=== PATIENT | female | born 1945 | race Caucasian/White ===

== ENCOUNTER 2020-12-25 23:25 | Emergency (ER) | payer MEDICARE, OTHER, SELFPAY ==
[2020-12-25 23:29] VITALS: BP 151/65; PULSE 111; RESP 14; TEMP 37.2; O2SAT 97
--- NOTE | 2020-12-25 23:57 | ED.SKABFB ---
HPI - Skin/Abscess/Foreign Bdy General Chief complaint: Skin/Abscess/Foreign Body Stated complaint: i think i have cellulitis in my right arm again Time Seen by Provider: 12/25/20 23:37 History of Present Illness HPI narrative: Patient is a 75-year-old female who presents ER with concerns for cellulitis to her right upper extremity. She typically wears a compression sleeve on the right arm. She took it off this evening because it is getting itchy. And she has developed edema and redness from the distal upper arm down to the wrist. Is warm to touch. She had a fever at home. She has had cellulitis similar to this in the past. No chest pain or shortness of breath. She has not tried any pain medication. Related Data Home Medications Medication Instructions Recorded Confirmed atorvastatin 20 mg tablet 20 mg PO DAILY 10/11/19 12/08/20 lisinopril 5 mg tablet 5 mg PO DAILY 10/11/19 12/08/20 aspirin 81 mg tablet,delayed 81 mg PO BID tablet 10/15/19 12/08/20 release sitagliptin 50 mg-metformin 1,000 1 tablet PO BID tablet 10/15/19 12/08/20 mg tablet Allergies Allergy/AdvReac Type Severity Reaction Status Date / Time No Known Allergies Allergy Unknown Uncoded 12/08/20 14:27 Review of Systems Review of Systems: All systems reviewed & are unremarkable except as noted in HPI and below Constitutional: Constitutional: Denies chills, Reports fever(s) and Denies weakness Musculoskeletal: Musculoskeletal: Denies arthralgias, Denies joint swelling and Denies muscle cramps Integumentary/Breasts: Skin/Breast: Reports pruritus, Reports erythema and Reports rash PMFSH Past Medical History Medical History (Updated 12/26/20 @ 00:00 by Venancio Goodwin MD) Body mass index (bmi) 38.0-38.9, adult (04/06/19) Diabetes 1.5, managed as type 2 PEÑALOZA (dyspnea on exertion) Dyslipidemia Essential hypertension History of breast cancer Lung nodule Lung nodule seen on imaging study Preop cardiovascular exam Surgical History Surgical History H/O: hysterectomy Family History Family History Father Family history of primary malignant neoplasm of liver Patient's father is , Onset Age: 68 Family history of malignant neoplasm of brain Mother Cerebrovascular accident, Onset Age: 94 Hypertension Sibling Breast cancer Sachin disease Social History Social History Smoking status: Never smoker Alcohol intake: never Substance use: never Spiritual care concerns: No Agree to blood products: Yes Exam Narrative: Exam Narrative: GENERAL: Well-appearing, well-nourished, and in no acute distress. HEAD: Normocephalic, atraumatic. CHEST: Clear to auscultation. No respiratory distress. HEART: Regular rate and rhythm. Normal peripheral pulses. EXTREMITIES: Normal range of motion. Mild edema right upper extremity from the elbow to the wrist. SKIN: Warm, dry, developing cellulitis right upper extremity that is warm to touch and slightly pink. No pustules or vesicles. NEURO: Alert and oriented x3. PSYCH: Normal mood and affect. Course Course Emergency Course: Will discharge with antibiotics. 1st dose here. Recommend follow-up with PCP. Discussed return precautions and patient verbalized understanding. Vital Signs Vital signs: Vital Signs Temperature 98.9 F 12/25/20 23:29 Pulse Rate 111 H 12/25/20 23:29 Respiratory Rate 14 12/25/20 23:29 Blood Pressure 151/65 H 12/25/20 23:29 Pulse Oximetry 97 12/25/20 23:29 Temperature 98.9 F 12/25/20 23:29 Pulse Rate 111 H 12/25/20 23:29 Respiratory Rate 14 12/25/20 23:29 Blood Pressure 151/65 H 12/25/20 23:29 Pulse Oximetry 97 12/25/20 23:29 Discharge Plan Discharge Clinical Impression: Cellulitis Patient Disposition: Home, Self-Care Condition: Stable
[2020-12-26] MEDS: CEPHALEXIN 500 MG CAPSULE PO (00:09)
== END 2020-12-26 00:13 | disposition home or self-care (01) ==
PROVIDERS: Emergency Provider Emergency Medicine
DX: L03.113 Cellulitis of right upper limb (principal); E78.5 Hyperlipidemia, unspecified; I10 Essential (primary) hypertension; E13.9 Other specified diabetes mellitus without complications; Z85.3 Personal history of malignant neoplasm of breast; Z79.82 Long term (current) use of aspirin
CPT/HCPCS: 99283; A9270

== ENCOUNTER 2021-02-07 09:33 | Outpatient (CLI) | payer MEDICARE, OTHER, SELFPAY ==
--- NOTE | ~2021-02-07 | CT_ITS ---
EXAMINATION: CT diagnostic chest wo con EXAM DATE: 02/07/2021 09:53 INDICATION: R91.1 - Solitary pulmonary nodule R91.1. TECHNIQUE: Spiral CT of the chest without contrast. Axial, coronal and sagittal images were reviewe d. Coronal maximum intensity pixel images of chest reviewed. The dose-length product (DLP) for this examination was 164.85 mGy-cm. The exposure was tailored according to patient size (auto mA exposur e control), and iterative reconstruction (ASIR) was used as additional dose reduction technique. Comp arison is made to prior examination from 04/21/2019. FINDINGS: Left lower lobe lateral sulcus 5 mm nodule unchanged. There is another larger calcified le ft lower lobe granuloma. Mild emphysema. No new or suspicious pulmonary nodules. There are no pleura l or pericardial effusions. Tracheobronchial tree is patent. There is no mediastinal, hilar or ax illary lymphadenopathy. There is no pneumothorax. Heart normal in size. There is mild coronary arterial calcification, arterial sclerosis. There are left axillary surgical clips. Clips in the gal lbladder fossa. There is moderate thoracic spondylosis without osteoblastic or osteolytic lesions id entified. Moderate-sized bridging endplate osteophytes. IMPRESSION: 1. Granulomata. 2. Mild emphysema. Reviewed, dictated and finalized at location A.
== END 2021-02-07 09:34 | disposition home or self-care (01) ==
PROVIDERS: Visit Provider Nurse Practitioner Family
DX: R91.1 Solitary pulmonary nodule (principal); J43.9 Emphysema, unspecified
CPT/HCPCS: 71250

== ENCOUNTER 2023-11-12 10:18 | Emergency (ER) | payer MEDICARE, OTHER, SELFPAY ==
--- NOTE | ~2023-11-12 | US_ITS ---
EXAMINATION: US venous doppler UE RT DATE: 11/12/2023 12:36 INDICATION: Right upper extremity swelling TECHNIQUE: Grayscale ultrasound images without and with compression and Doppler ultrasound images of the right upper extremity veins were obtained. COMPARISON: None. FINDINGS: The right internal jugular vein, subclavian vein, axillary vein, brachial veins, basilic vein, cephal ic vein, radial vein, and ulnar vein are patent. IMPRESSION: 1. No evidence of deep venous thrombosis. Reviewed, dictated and finalized at location B. [employer]
[2023-11-12 10:30] VITALS: BP 170/68; PULSE 106; RESP 16; TEMP 36.7; O2SAT 100
--- NOTE | 2023-11-12 11:45 | ED.SKABFB ---
HPI - Skin/Abscess/Foreign Bdy General Chief complaint: Skin/Abscess/Foreign Body Stated complaint: ?cellulitis to R arm Time Seen by Provider: 11/12/23 11:35 History of Present Illness HPI narrative: 78-year-old female with a history of bilateral mastectomy with subsequent lymphedema, diabetes, hypertension and dyslipidemia reports for evaluation for right upper extremity edema and erythema that started in the middle the night last night. Patient states she woke up this morning with worsening swelling and redness that extends from her right wrist to her right elbow. She denies fever or vomiting. She does endorse a mild amount of nausea. States that she occasionally gets cellulitis secondary to her lymphedema not present like this. She does note that the [place], she instantly versus cells within the to right 3rd finger. Her tetanus is up-to-date. It is healing well. Otherwise no recent traumas or injuries to this extremity. No hx of MRSA, no recent surgeries or hospitalizations. Related Data Home Medications Medication Instructions Recorded Confirmed atorvastatin 20 mg tablet 20 mg PO DAILY 10/11/19 01/24/21 lisinopril 5 mg tablet 5 mg PO DAILY 10/11/19 01/24/21 aspirin 81 mg tablet,delayed 81 mg PO BID 10/15/19 01/24/21 release sitagliptin phosphate 50 1 tablet PO BID 10/15/19 01/24/21 mg-metformin 1,000 mg tablet (Janumet) Allergies Allergy/AdvReac Type Severity Reaction Status Date / Time No Known Allergies Allergy Unknown Uncoded 11/12/23 11:19 Review of Systems Review of Systems: CONSTITUTIONAL: Denies fever, chills, or sweats. EYES: Denies visual changes, redness, or discharge. ENT: Denies rhinorrhea, congestion, sore throat, or otalgia. CARDIOVASCULAR: Denies chest pain, palpitations, or edema. RESPIRATORY: Denies cough or dyspnea. GASTROINTESTINAL: Denies abdominal pain, nausea, vomiting, or diarrhea. GENITOURINARY: Denies dysuria or hematuria. SKIN: See HPI MUSCULOSKELETAL: Denies back pain, joint pain, or myalgia. NEUROLOGIC: Denies headache, numbness, or weakness. PSYCHIATRIC: Denies anxiety or depression. [facility] Past Medical History Medical History Body mass index (bmi) 38.0-38.9, adult (04/06/19) Diabetes 1.5, managed as type 2 PEÑALOZA (dyspnea on exertion) Dyslipidemia Essential hypertension History of breast cancer Lung nodule Lung nodule seen on imaging study Preop cardiovascular exam Surgical History Surgical History H/O: hysterectomy Family History Family History Father Family history of primary malignant neoplasm of liver Patient's father is , Onset Age: 68 Family history of malignant neoplasm of brain Mother Cerebrovascular accident, Onset Age: 94 Hypertension Sibling Breast cancer Sach[place] disease Social History Social History Smoking status: Never smoker Alcohol intake: never Substance use: never Spiritual care concerns: No Agree to blood products: Yes Exam Narrative: GENERAL: Well-appearing, well-nourished, and in no acute distress. HEAD: Normocephalic, atraumatic. EYES: PERRLA and EOMI. ENT: Nares clear, no rhinorrhea or epistaxis. Mucous membranes moist. NECK: Supple. CHEST: Clear to auscultation. No respiratory distress. HEART: Regular rate and rhythm. No murmur heard. Normal peripheral pulses. ABDOMEN: Soft, nontender, nondistended, normal active bowel sounds. EXTREMITIES: Normal range of motion. No edema. SKIN: RUE: Blanching erythema, warmth and tenderness extending from the wrist to the distal humerus. No purulence, lesions, crepitus or necrosis. Full range of motion of extremity. Radial pulse 2 +. Sensation intact throughout. Small less than 0.5 cm healing laceration to the distal phala
[2023-11-12 12:06] LABS: Basophils Absolute Auto 0.1 K/mm3 (0.0-0.1); Basophils Percent Auto 0.3 % (0.2-1.2); Eosinophils Percent Auto 0.1 % (0-4.4); Hematocrit 44.3 % (37.0-47.0); Hemoglobin 14.1 g/dL (12.0-15.0); Immature Granulocyte Absolute 0.08 K/mm3 (0.00-0.031); Immature Granulocyte Percent A 0.5 % (0-0.5); Lymphocytes Absolute Auto 0.73 K/mm3 (0.9-3.2); Lymphocytes Percent Auto 4.8 % (18.3-44.2); Mean Corpuscular HGB Conc 31.8 g/dl (32-36); Mean Corpuscular Hemoglobin 30.5 pg (26-34); Mean Corpuscular Volume 95.7 fl (80-100); Mean Platelet Volume 8.8 fl (7.4-10.4); Monocytes Absolute Auto 0.5 K/mm3 (0.1-0.6); Monocytes Percent Auto 3.3 % (2.6-8.5); Neutrophils Absolute Auto 13.9 K/mm3 (1.3-6.7); Platelet Count Result 255 k/mm3 (150-375); Red Blood Count 4.63 M/mm3 (4.2-5.4); Red Cell Distribution Width 12.7 % (11.5-14.5); White Blood Count 15.3 K/mm3 (4.5-10.0)
[2023-11-12 12:18] LABS: Lactic Acid Reflex 2.5 mmol/L (0.7-2.0)
[2023-11-12 12:21] LABS: Anion Gap 12 mmol/L (8-16); Blood Urea Nitrogen 11 mg/dL (7-17); CRP < 0.5 mg/dL (<1.0); Calcium 9.5 mg/dL (8.4-10.2); Carbon Dioxide 23 mmol/L (22-30); Chloride 103 mmol/L (98-107); Estimated CRCL calculation 89 ml/min; Estimated Glomerular Filt Rate > 60; Glucose 144 mg/dL (65-110); Potassium 4.5 mmol/L (3.4-5.0); Sodium 138 mmol/L (137-145)
[2023-11-12 12:33] LABS: Erythrocyte Sedimentation Rate 21 mm/hr (0-20)
[2023-11-12] MEDS: ceFAZolin 1 GM/NS 50 ML 1 GM/50 ML BAG IVPB (13:40)
[2023-11-12] MEDS: SODIUM CHLORIDE 0.9% IV 1,000 ML 999 ML IV CONT (13:40)
[2023-11-12 14:51] VITALS: BP 140/78; PULSE 109; RESP 16; TEMP 37.7; O2SAT 98
[2023-11-12 15:04] LABS: Reflex Lactic Acid Yes or No Add Lactic
== END 2023-11-12 14:56 | disposition home or self-care (01) ==
PROVIDERS: Emergency Provider Physician Assistant
DX: L03.113 Cellulitis of right upper limb (principal); I10 Essential (primary) hypertension; E78.5 Hyperlipidemia, unspecified; E13.9 Other specified diabetes mellitus without complications; Z85.3 Personal history of malignant neoplasm of breast; Z90.13 Acquired absence of bilateral breasts and nipples; Z79.82 Long term (current) use of aspirin; Z79.84 Long term (current) use of oral hypoglycemic drugs
CPT/HCPCS: 36415; 80048; 83605; 85025; 85652; 86140; 93971; 96365; 99284; J0690; J7030